=== PATIENT | female | born 1935 | race Caucasian/White ===

== ENCOUNTER 2019-11-14 14:40 | Emergency (ER) | payer MEDICARE, SELFPAY ==
[2019-11-14 14:52] VITALS: BP 157/75; PULSE 96; RESP 16; TEMP 36.7; O2SAT 97; BMI 20.1
--- NOTE | 2019-11-14 15:13 | RAD_ITS ---
STUDY: X-RAY - LEFT WRIST REASON FOR EXAM: Female, 84 years old. PAIN S/P FALL TECHNIQUE: 3 view(s) of the wrist were obtained. COMPARISON: None. FINDINGS: There is demineralization of the radius and ulna. There is degenerative arthrosis of the radiocarpal articulation. Normal distal radioulnar articulation. Normal carpal bones. Normal carpal articulations. There is degenerative arthrosis of the carpometacarpal articulation of the thumb. Normal second through fifth carpometacarpal articulations. Normal visualized metacarpal bones. Calcification of the triangular fibrocartilage. RAD/Wrist min 3 Views IMPRESSION: Demineralization of the visualized bony structures. Calcification of the triangular fibrocartilage. Electronically Signed: Cachorro Feliciano, at 15:38 EST , Service support ,
--- NOTE | 2019-11-14 16:09 | RAD_ITS ---
STUDY: X-RAY - PELVIS REASON FOR EXAM: Female, 84 years old. fall. having lower back pain TECHNIQUE: One view of the pelvis was obtained. COMPARISON: None. FINDINGS: There is a non-specific bowel gas pattern. Normal visualized soft tissue structures. Normal bilateral iliac wings, sacroiliac joints and visualized sacrum. Normal visualized bilateral superior and inferior pubic rami. Normal pubic symphysis. Normal ischial tuberosities. 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 There is osteoarthritic spur formation of the right acetabular rim. There is moderate articular joint space narrowing of the right hip. There are osteoarthritic changes of the left femoral head with marginal osteophyte formation. Normal left acetabulum. There is mild articular joint space narrowing of the left hip. RAD/Pelvis 1 or 2 Views IMPRESSION: No acute fracture or dislocation. Electronically Signed: Derek Barragan MD at 16:29 EST Tel , Service support ,
--- NOTE | 2019-11-14 16:12 | RAD_ITS ---
STUDY: X-RAY - LUMBAR SPINE REASON FOR EXAM: Female, 84 years old. fall. having lower back pain TECHNIQUE: 3 view(s) of the lumbar spine were obtained. COMPARISON: None FINDINGS: Normal lumbar lordosis. There is a levoscoliosis of the lumbar spine. 5 mm anterolisthesis of L4 on L5. There is multilevel endplate spondylosis of the lumbar vertebrae. There is multi-level degenerative disc disease with multi-level disc space narrowing. The soft tissue structures are unremarkable. RAD/Lumbar Spine 2 or 3 Views IMPRESSION: Mild levoscoliosis with diffuse degenerative disc disease in 5 mm of anterolisthesis of L4 on L5. Electronically Signed: Derek Barragan MD at 16:34 EST Tel , Service support ,
--- NOTE | 2019-11-14 16:19 | ED.VIS.GEN ---
History of Present Illness Chief Complaint: Fall Informant: Patient Narrative: Patient states that yesterday she was walking in a parking lot when she tripped over a concrete barrier and fell. She landed in a sitting position. She notes bruising over the left medial wrist and left posterior thigh and hip. She states that those areas do not hurt. She notes pain in the low back that is intermittently worse with some movements. She describes it as diffusely across the low back not just in the midline. She denies any radicular symptoms. No bowel or bladder dysfunction or muscle strength or sensory changes. She denies hitting her head. Past Medical History - Allergies and Home Meds Allergies/Adverse Reactions: Allergies Sulfa (Sulfonamide Antibiotics) Allergy (Verified 11/14/19 14:53) Rash Primary Care Physician: Care Physician,No Primary [NON-STAFF] - Surgical History: cholecystectomy, - - L facial cancer removal. Smoking Status: Never smoker - Family History Maternal Family History: Reports: No pertinent history Paternal Family History: Reports: No pertinent history Review of Systems General: Denies: Chills, Fever, Sweats Eyes: Denies: Visual changes - bilaterally, Diplopia ENT: Denies: Rhinorrhea, Sore throat Cardiovascular: Denies: Chest pain, Palpitations Respiratory: Denies: Dyspnea, Cough, Dyspnea on exertion Gastrointestinal: Denies: Abdominal pain, Nausea, Vomiting, Diarrhea, Melena, Hematochezia Genitourinary: Denies: Dysuria, Hematuria, Frequency Musculoskeletal: Reports: Back pain Skin: Reports: - - Bruising. Denies: Rash, Wounds Neurological: Denies: Headache, Weakness, Numbness Physical Exam Vital Signs/Narrative: Vital Signs Temp Pulse Resp BP Pulse Ox 11/14/19 14:52 98.1 F 96 16 157/75 H 97 Inital Vital Signs reviewed: Yes General: Well nourished, Well developed, No Acute Distress Head: Normocephalic, Atraumatic Eyes: Perrl, EOMI ENT: Moist mucous membranes, No rhinorrhea Neck: Supple, Nontender Cardiovascular: Regular rate, Regular rhythm, No murmurs Respiratory: No distress, CTA bilaterally, Chest nontender Abdomen: Soft, Nontender, Nondistended, Normal bowel sounds Back: - - Patient has diffuse tenderness across the lower lumbar back. Extremities: Nontender, No edema Skin: Normal color, No rash, Trauma - Patient has ecchymosis of the medial left breast. No tenderness or deformity. Full range of motion. Neurovascular intact. Patient has some ecchymosis and hematoma over the left posterior hip. Neurological: Alert, Oriented x3, Cranial nerves II-XII grossly intact, Normal Strength, Normal Sensation Psychological: Normal affect, Normal Mood Diagnostic/Tx/Re-eval - Medical Decision Making X-rays of the wrist were negative. X-rays of the pelvis and lumbar spine were also obtained. These were also negative for fracture. X-ray results were discussed with the patient. Think the patient is most likely suffering a lumbar strain. Would recommend Tylenol heat and rest. Return if worsening or concerns ED Disposition - Plan for ED Patient: Disposition: [facility] Hospital or Unit Diagnosis: Lumbar strain, Contusion, hip, Wrist contusion Instructions: FALL, Mechanical, Back Sprain/Strain Additional Instructions: Please follow-up with primary care as needed return if worsening or concerns
== END 2019-11-14 17:07 | disposition home or self-care (01) ==
PROVIDERS: Emergency Provider Emergency Medicine; PCP Internal Medicine
DX: S39.012A Strain of muscle, fascia and tendon of lower back, initial encounter (principal); S70.00XA Contusion of unspecified hip, initial encounter; S60.219A Contusion of unspecified wrist, initial encounter; W01.0XXA Fall on same level from slipping, tripping and stumbling without subsequent striking against object, initial encounter; Y92.481 Parking lot as the place of occurrence of the external cause; Y93.01 Activity, walking, marching and hiking; M43.16 Spondylolisthesis, lumbar region; M51.36 Other intervertebral disc degeneration, lumbar region; Z88.2 Allergy status to sulfonamides; Z90.49 Acquired absence of other specified parts of digestive tract
CPT/HCPCS: 72100; 72170; 73110; 99284

== ENCOUNTER → 2023-05-19 | Outpatient (CLI) | payer MEDICARE, SELFPAY ==
--- NOTE | 2023-05-18 15:15 | LES_PTH ---
PATIENT: HUMBERTO GILMAN LOC: [facility] U#:[id number] AGE/SX: 87/F ROOM: RE05/19/[address]: Dr. Hiren Haas MD : 1935 BED: DIS: 05/19/2023 SPEC #: [id number] RECD: 05/19/23 08:06 STATUS: FANY REYES #: [id number] MICA: 05/18/23 15:[address]: Hiren Haas DEPT: SURGICAL PATHOLOGY RECD BY: Vibha Boston ENTERED: 05/19/23 10:19 SP TYPE: Lesion OTHR DR: Dr. Anabelle Ludwig MD Tissues: Skin of nose, NOS Procedures: Surgery Specimen Level IV HEADER OPERATION: Excision of skin lesions left anterior lateral nose PRE-OP DIAGNOSIS: Nasal lesion TISSUE SUBMITTED: Left anterior lateral nose MICROSCOPIC DIAGNOSIS Left anterior lateral nose lesion, excision: Basal cell carcinoma, nodular and focal cystic. See comment. AM:nancie 05/20/2023 COMMENT The lesion appears to have been completely excised in the planes examined. Clinical correlation is suggested. Case has been reviewed in consultation with Dr. Ivey who concurs with the above diagnosis. CHOCO:[place] MICROSCOPIC DESCRIPTION Slides are reviewed. GROSS DESCRIPTION Received in fixative is one container labeled with the patient's name and designated left anterior lateral nose. The specimen consists of a piece of harris, white skin ellipse measuring 2.0 x 1.0 x 0.7 cm. There is a raised, harris-white lesion on the surface measuring 1.0 x 1.0 x 0.6 cm. The specimen is inked, serially sectioned, and submitted entirely in one cassette. / [place]:nancie 05/19/2023 TC:0 CPT:64936
== END | disposition home or self-care (01) ==
LOC: LABSPEC 08:20
PROVIDERS: PCP Internal Medicine; Referring Provider Surgery; Visit Provider Surgery
DX: C44.311 Basal cell carcinoma of skin of nose (principal)
CPT/HCPCS: 88305